=== PATIENT | female | born 1975 | race Caucasian/White ===

== ENCOUNTER 2017-08-17 22:29 | Emergency (ER) | payer SELFPAY ==
[~2017-08-17] VITALS: Ht 162.6 cm; Wt 122.0 kg
[2017-08-17 22:41] VITALS: BP 152/92
--- NOTE | 2017-08-18 00:30 | NUR ---
PT. AMBULATES TO ER OF 2
--- NOTE | 2017-08-18 01:00 | NUR ---
PATIENT BEING EVALUATED BY DR. CM.
[2017-08-18] MEDS ORDERED: KETOROLAC 60 MG/2 ML VIAL IM ONE (01:50)
--- NOTE | 2017-08-18 03:19 | NUR ---
PT.AMBULATES TO ER BED 4
--- NOTE | 2017-08-18 03:23 | NUR ---
42 Y/F PT. PRESENTS TO ED WITH C/O L BREAST PAIN S/P FALLING AND HITTING L BREAST WITH A CHAIR. MED HX, DM, HTN, HIGH CHOLESTEROL, SLEEP APNEA. AAO X4, AMBULATORY WITH STEADY -GAIT. RESPIRATIONS ROOM AIR, EVEN AND UNLABORED O2 SAT RA 79-84%. ER MD MADE AWARE. C/O PAIN 05/31. VSS, NO S/SX OF DISTRESS AT THIS TIME.
[2017-08-18 04:10] VITALS: BP 137/68
--- NOTE | 2017-08-18 04:10 | NUR ---
Patient discharged with v/s stable. Written and verbal after care instructions given and explained. Patient alert, oriented and verbalized understanding of instructions. Ambulatory with steady gait. All questions addressed prior to discharge. ID band removed. Patient advised to follow up with PMD. Rx of NAPROSYN 500 MG given. Patient educated on indication of medication including possible reaction and side effects. Opportunity to ask questions provided and answered.
== END 2017-08-18 04:10 | disposition home or self-care (01) ==
LOC: MED 22:29
DX: S20.212A Contusion of left front wall of thorax, initial encounter (principal); G47.30 Sleep apnea, unspecified; E11.9 Type 2 diabetes mellitus without complications; W08.XXXA Fall from other furniture, initial encounter; Y93.89 Activity, other specified; Y92.89 Other specified places as the place of occurrence of the external cause; Y99.8 Other external cause status
CPT/HCPCS: 71250; 81025; 96372; 99284; J1885